=== PATIENT | female | born 1975 | race Caucasian/White ===

== ENCOUNTER 2022-07-29 10:03 | Outpatient (CLI) | payer OTHER, SELFPAY | END 2022-07-29 10:04 | disposition home or self-care (01) | PROVIDERS: Visit Provider Physician Assistant | DX: Z01.419 Encounter for gynecological examination (general) (routine) without abnormal findings (principal); E66.9 Obesity, unspecified; Z13.6 Encounter for screening for cardiovascular disorders; Z13.1 Encounter for screening for diabetes mellitus | CPT/HCPCS: 80061; 82947; 84443 ==

== ENCOUNTER 2022-10-07 14:42 | Outpatient (CLI) | payer OTHER, SELFPAY ==
--- NOTE | 2022-10-07 15:00 | CRLHL7_ITS ---
For Patients: As a result of the Century Cures Act, medical imaging exams and procedure reports are released immediately into your electronic medical record. You may view this report before your referring provider. If you have questions, please contact your health care provider. BILATERAL SCREENING MAMMOGRAM WITH COMPUTER-AIDED DETECTION AND TOMOSYNTHESIS TECHNIQUE: CC and MLO views were obtained. These mammographic images have been obtained using full-field digital technique. These mammographic images were interpreted with the benefit of computer-aided detection. Breast Tomosynthesis was used in this interpretation. COMPARISON FILM: 07/10/21, 03/22/14, 11/05/11. FINDINGS: There are scattered areas of fibroglandular density IMPRESSION: There is no radiographic evidence for malignancy. ASSESSMENT: BI-RADS Category 2: Benign RECOMMENDATION: Routine screening mammogram in 1 year. A lay language report of this examination will be provided to the patient. Tomas Riley M.D. Diagnostic/Nuclear Medicine Radiologist [email or web address] KAT/Dictated by: Tomas Riley MD @ 10/09/2022 10:14:00 AM (Electronically Signed)
== END 2022-10-07 14:43 | disposition home or self-care (01) ==
PROVIDERS: Visit Provider Physician Assistant
DX: Z12.31 Encounter for screening mammogram for malignant neoplasm of breast (principal)
CPT/HCPCS: 77063; 77067

== ENCOUNTER 2024-04-22 09:03 | Outpatient (CLI) | payer OTHER, SELFPAY ==
[2024-04-23 22:38] LABS: HPV Source Cervix; HPV, High Risk by TMA Not Detected
== END 2024-04-22 09:04 | disposition home or self-care (01) ==
PROVIDERS: Visit Provider Physician Assistant
DX: N89.8 Other specified noninflammatory disorders of vagina (principal); Z13.6 Encounter for screening for cardiovascular disorders; Z13.1 Encounter for screening for diabetes mellitus; Z12.4 Encounter for screening for malignant neoplasm of cervix
CPT/HCPCS: 80061; 82947; 84443; 87624; 87625; 88141; 88142

== ENCOUNTER 2025-01-20 10:24 | Emergency (ER) | payer OTHER, SELFPAY ==
[2025-01-20] VITALS (21 sets, daily range): BP systolic 104–145; BP diastolic 62–94; PULSE 82–130; RESP 18; TEMP 36.1; O2SAT 95–99; BMI 33.3
--- NOTE | 2025-01-20 11:03 | ED.ABDPAIN ---
HPI - Abdominal Pain General Time Seen by Provider: 11:03 Date Seen: 01/20/25 Chief Complaint: Abdominal Pain Stated Complaint: Lower abdominal pain Time Seen by Provider: 01/20/25 10:50 Source: patient and RN notes reviewed Mode of arrival: ambulatory Limitations: no limitations History of Present Illness HPI narrative: Hanna is a very pleasant 49-year-old woman with history of constipation on daily stool softener who comes to the emergency room for evaluation of inability to stool and abdominal pain. Patient notes that she had not skipped any of her normal [id number] stool softeners and yet found herself with decreasing inability does stool over the past 7 days. She notes that she has also tried suppositories and enemas. Because of this she now has blood in her stool. She has been able to produce small amounts of stool but feels that it is probably coming around a large blockage. She notes abdominal cramping that is severe causing nausea but she has not had any vomiting. She denies fever or chills. She has had a tubal ligation otherwise no other abdominal surgeries. This has never happened to her before. Nursing staff notes that she was tachycardic and thus did an EKG in triage. She has no chest pain at this time Related Data Previous Rx's ?Medication ?Instructions ?Recorded estradiol 0.01% (0.1 mg/gram) 1 appful vaginal QDAY #42.5 grams 04/22/24 vaginal cream (Estrace) estradiol 0.05 mg/24 hr semiweekly 1 patch topical 2XW #24 patches 04/22/24 transdermal patch progesterone micronized 100 mg 100 mg PO QDAY #90 caps 04/22/24 capsule Allergies Allergy/AdvReac Type Severity Reaction Status Date / Time penicillin V Allergy Intermediate Rash Verified 01/20/25 10:39 Review of Systems Status of ROS Reports: 10 or more systems reviewed and unremarkable except as noted in History and below Const Denies: fever or chills Eyes Denies: change in vision [facility] Medical History History of vaginal delivery History of abnormal cervical Pap smear (03/09/14) ?Z87.42 - Personal history of other diseases of the female genital tract (ICD-10) Surgical History History of tubal ligation (1994) ?Z98.51 - Tubal ligation status (ICD-10) History of laparoscopy (06/19/05) ?Z98.890 - Other specified postprocedural states (ICD-10) History of colposcopy with cervical biopsy (07/19/21) ?Z98.890 - Other specified postprocedural states (ICD-10) History of colposcopy ?Z98.890 - Other specified postprocedural states (ICD-10) Family History Brother Diabetes Mother Diabetes Social History (Updated 04/22/24 @ 08:49 by Tracey Ulrich ~ [facility], [facility]) What is your current living situation?: I presently have a place to live Problems where you live: no known problems In the past 12 months, utilities in danger of being shut off: no In past 12 months, lack of transportation kept you from medical appts, meetings, work, or getting things needed for daily living: no In the past 12 mos, have been you worried that your food would run out before you had money to buy more?: never true In the past 12 mos, the food you bought just didn't last and you didn't have money to buy more?: never true Smoking Status: Never smoker How often does anyone, including family, friends and others, physically hurt you: never How often does anyone, including family, friends and others, insult or talk down to you: never How often does anyone, including family, friends and others, threaten you with harm: never How often does anyone, including family, friends and others, scream or curse at you: never Exam Narrative: Exam Narrative: Patient is alert and oriented. Mentation and speech is normal. Lips are dry. Heart with a tachycardic rate normal rhythm. Lungs are clear. Rectal exam shows no evidence of blood on the external anus. No evidence of swollen hemorrhoids. Finger is inserted and no large stool collection is noted. I did have a small amount of liquid stool on my gloved finger tip and it clearly does have some blood associated. Moving all extremities without difficulty. Abdomen with increased bowel sounds. No significant distension. Const: Vital Signs, click to edit/add: Vital Signs - 24 hr 01/20/25 10:35 01/20/25 11:44 01/20/25 11:45 Temperature 97 F L Pulse Rate 112 H 112 H Pulse Rate [Pulse Oximeter] 130 H Respiratory Rate 18 Blood Pressure 121/92 H Blood Pressure [Ri ght Upper Arm] 127/82 Pulse Oximetry 98 99 98 Oxygen Delivery Me thod Room Air 01/20/25 11:46 01/20/25 11:47 01/20/25 12:00 Temperature Pulse Rate 121 H 121 H 113 H Pulse Rate [Pulse Oximeter] Respiratory Rate Blood Pressure 104/94 H Blood Pressure [Ri ght Upper Arm] Pulse Oximetry 95 98 98 Oxygen Delivery Me thod 01/20/25 12:01 01/20/25 12:15 01/20/25 12:16 Temperature Pulse Rate 122 H 108 H 105 H Pulse Rate [Pulse Oximeter] Respiratory Rate Blood Pressure 109/85 109/82 Blood Pressure [Ri ght Upper Arm] Pulse Oximetry 97 96 97 Oxygen Delivery Me thod 01/20/25 12:39 01/20/25 12:45 01/20/25 12:46 Temperature Pulse Rate 94 91 90 Pulse Rate [Pulse Oximeter] Respiratory Rate Blood Pressure 145/62 H Blood Pressure [Ri ght Upper Arm] Pulse Oximetry 98 99 98 Oxygen Delivery Me thod 01/20/25 13:00 01/20/25 13:01 01/20/25 13:02 Temperature Pulse Rate 90 90 87 Pulse Rate [Pulse Oximeter] Respiratory Rate Blood Pressure 132/86 Blood Pressure [Ri ght Upper Arm] Pulse Oximetry 98 98 98 Oxygen Delivery Me thod 01/20/25 14:49 01/20/25 14:50 01/20/25 14:53 Temperature Pulse Rate 99 102 H Pulse Rate [Pulse Oximeter] Respiratory Rate Blood Pressure 132/74 Blood Pressure [Ri ght Upper Arm] Pulse Oximetry 97 95 Oxygen Delivery Me thod 01/20/25 15:00 01/20/25 15:15 01/20/25 15:30 Temperature Pulse Rate 93 92 82 Pulse Rate [Pulse Oximeter] Respiratory Rate Blood Pressure Blood Pressure [Ri ght Upper Arm] Pulse Oximetry 98 96 98 Oxygen Delivery Me thod Documenting provider has reviewed patient's vital signs: yes Course Course ED Course: Differential diagnosis includes but is not limited to constipation, bowel obstruction, mass, colitis, diverticulitis. Patient will need pain medications. I would like to avoid narcotics as it can be Pro constipating. Will use Toradol 15 mg IV along with 1 L of saline. If pain continues will use Valium 5 mg IV. Will start with flat plate and upright and CBC. Reevaluation(s) Reevaluation #1: Patient noted to have significant improvement with Toradol although some cramping remains. Will use Valium 5 mg as we do have a flat plate and upright did do not show significant amount of stool throughout the abdomen. White count is concerning a greater than 24,000. Certainly this could be demargination based on the significant pain patient was in but at this level I do think we need to further investigate the etiology of the sudden inability to stool as patient is on both do call Axe and magnesium citrate daily. I spoke to the patient about proceeding with CT of the abdomen and pelvis as further laboratory work. She is in agreement. Reevaluation #2: Patient noted to have proctitis and moderate volume of stool in the rectum. I certainly this is not something that I was able to reach with my finger. I did have the pleasure of consulting with our surgeon Dr. Owens who was able to view the CT as well. At this time will check a lactate given the elevated white count as well as comprehensive panel and CRP. Surgeon did suggest enema-will use soap suds. Will pre treat with a small amount of lidocaine jelly just within the rectum. She is given a 2 L of fluid. Reevaluation #3: Patient notes that she was able to have a small stool. She is feeling much better. Lactate fortunately was 1.7 and normal. Additional Reevaluation(s): Note that patient had an elevated heart rate upon arrival. I do believe this was from pain. She had no chest pain at that time. EKG does not show any acute injury. Patient was given fluids and heart rate has return to 80s. Consultations Consultation #1: Dr. Owens-surgical technologist. Vital Signs Vital signs: Initial Vital Signs Temperature 97 F L 01/20/25 10:35 Temperature Source Temporal Artery Scan 01/20/25 10:35 Pulse Rate 130 H 01/20/25 10:35 Pulse Rhythm Regular 01/20/25 10:35 Respiratory Rate 18 01/20/25 10:35 Blood Pressure 127/82 12/04/25 10:35 Blood Pressure Mean 97 01/20/25 10:35 Blood Pressure Position Sitting 01/20/25 10:35 Pulse Oximetry 98 01/20/25 10:35 Oxygen Delivery Method Room Air 01/20/25 10:35 Vital Signs Temperature 97 F L 01/20/25 10:35 Pulse Rate 130 H 01/20/25 10:35 Respiratory Rate 18 01/20/25 10:35 Blood Pressure 127/82 01/20/25 10:35 Pulse Oximetry 98 01/20/25 10:35 Oxygen Delivery Method Room Air 01/20/25 10:35 Temperature 97 F L 01/20/25 10:35 Pulse Rate 82 01/20/25 15:30 Respiratory Rate 18 01/20/25 10:35 Blood Pressure 132/74 01/20/25 14:50 Pulse Oximetry 98 01/20/25 15:30 Oxygen Delivery Method Room Air 01/20/25 10:35 Medications Administered Medications: Discontinued Medications Generic Name Dose Route Start Last Admin Trade Name Freq PRN Reason Stop Dose Admin Diazepam 5 mg 01/20/25 11:51 01/20/25 11:59 Diazepam 5 Mg/Ml Inj IV 01/20/25 11:52 5 mg ONCE ONE Administration Sodium Chloride 1,000 mls @ 1,000 mls/hr 01/20/25 11:33 01/20/25 12:45 0.9 % Sodium Chloride 1000 Ml IV 01/20/25 12:32 Infused .Q1H GIL[facility] Infusion Ketorolac Tromethamine 15 mg 01/20/25 11:13 01/20/25 11:36 Ketorolac 15 Mg/Ml Inj IVP 01/20/25 11:14 15 mg ONCE ONE Administration Lidocaine HCl 6 ml 01/20/25 13:48 01/20/25 14:13 Lidocaine Hcl 2 % Jelly (Top) Sterile UR 3 ml ONCE PRN Administration Ondansetron HCl 4 mg 01/20/25 11:13 01/20/25 11:37 Ondansetron 2 Mg/Ml Inj IVP 01/20/25 11:14 4 mg ONCE ONE Administration MDM - Abdominal Pain MDM Narrative Medical decision making narrative: 1. Proctitis-patient has had increasing inability does stool over the last 7 days with home use of suppositories and enemas that have not been successful. Patient was given soapsuds enema here with small stool production. Given the repeated trauma to the rectum did not want to give any additional treatments. However, will use GoLYTELY to try and increase bowel transit and hopefully empty rectum. Patient has been using do Dulcolax and magnesium citrate daily. Will have her return to Dulcolax but not magnesium citrate after she is finished with GoLYTELY. Will have her instead do MiraLax 1/2 dose twice daily. 2. Leukocytosis-patient white count greater than 24,000. She is not experiencing a fever today and has no evidence of abscess on CT. However, I do wish her to recheck this with primary care early next week to ensure that this value has returned to normal. He was also noted that her glucose is mildly elevated and this should be recheck as well. 3. Abdominal pain-greatly improved with Toradol. We did give Valium pending the CT and this helped as well. No evidence of bowel obstruction free air noted on CT. 4. Tachycardia-initial heart rate upon arrival was 120s. Patient had no chest pain but EKG was done by nursing staff. Heart rate returned to normal after fluid bolus as well as pain control. 5. Disposition-patient initially instructed to follow up with surgery. However a 2nd conversation with the surgeon after patient departure occurred. Surgeon would like patient to establish with primary care. Would like primary care to recheck the white count as well as insure patient is improving. Finally patient does need a colonoscopy in the future and would ask that the primary care provider order that test. Jen has a phone number that she should be able to make this appointment. I did ask her to call me back if the appointment cannot be made for early next week January 24 or . Note patient is prone to UTI and I had ordered a urinalysis but she was unable to urinate here. She has no urinary symptoms at this time. Medical Records Attestation: I reviewed the patient's medical records. Lab Data Attestation: I reviewed the patient's lab results. Labs: Lab Results 01/20/25 01/20/25 01/20/25 Range/Units 11:25 12:04 14:45 WBC 24.94 H (4.50-11.00) K/uL RBC 4.72 (4.00-5.20) m/uL Hgb 14.8 (12.0-16.0) gm/dL Hct 43.6 (33.0-51.0) % MCV 92 (80-100) fL MCH 31 (26-34) pg MCHC 34 (32-36) gm/dL RDW Coeff of Livia 11.9 (11.5-15.5) % Plt Count 405 (140-440) K/uL Neut % (Auto) 91.2 H (42.0-72.0) % Lymph % (Auto) 4.2 L (20-44) % [place] % (Auto) 4.3 (0.0-11.0) % Eos % (Auto) 0.0 (0.0-7.0) % Baso % (Auto) 0.2 (0.0-3.0) % Neut # (Auto) 22.70 H (1.7-7.0) K/uL Lymph # (Auto) 1.00 (0.90-2.90) K/uL [place] # (Auto) 1.10 H (0.00-0.90) K/UL Eos # (Auto) 0.00 (0.00-0.50) K/uL Baso # (Auto) 0.00 (0.00-0.30) K/uL Abs Immat Gran (auto) 0.00 (0.00-0.30) K/uL Imm/Tot Granulo (auto) 0.1 % Diff Slide Review Acceptable Review (Acceptable) Sodium 138 (135-149) mmol/L Potassium 4.1 (3.6-5.1) mmol/L Chloride 100 (96-114) mmol/L Carbon Dioxide 26 (20-32) mmol/L Anion Gap 12 (7-15) mEq/L BUN 12 (7-30) mg/dL Creatinine 0.8 (0.5-1.5) mg/dL Estimated Creat Clear 78.76 Estimated GFR 90 ml/min Glucose 176 H (60-115) mg/dL Lactate 1.7 (0.5-1.9) mmol/L Calcium 9.2 (8.4-10.6) mg/dL Total Bilirubin 0.9 (0.1-1.5) mg/dL AST 29 (12-35) U/L ALT 18 (4-35) U/L Alkaline Phosphatase 77 (40-150) U/L Total Protein 8.2 (6.0-8.3) g/dL Albumin 4.6 (3.3-5.0) g/dL Lab Acknowledgement Test Added Imaging Data Abdominal x-ray: Attestation: I have reviewed the pertinent imaging results. My impression: I do not see a huge stool burden in the abdomen. I do not note signs of bowel obstruction. Radiologist's impression: Bowel: Nonobstructive bowel gas pattern. The amount of colonic stool is within normal limits. Other: No sign of free air. Osseous structures are unremarkable for age. Impression: Nonobstructive bowel gas pattern. ECG Data Attestation: I personally reviewed and interpreted this ECG as follows: ECG interpretation date: 01/20/25 Interpretation: EKG by my read shows sinus tachycardia at 0123. I do not see any acute ST or T-wave changes. WI and QT intervals within normal limits. campus monitor notes no arrhythmias. Heart rate gradually returns to 80 post fluid and pain control measures. Discharge Plan Discharge Clinical Impression: Acute proctitis, Constipation, Leukocytosis Patient Disposition: Home, Self-Care Condition: Improved Additional Instructions: Suggestion: GoLYTELY should help transit time of stool 3 your body. After using this you may return to yourDucolax. Replace magnesium citrate with MiraLax. You will need to follow-up for the following reasons: 1. Recheck of your white count to ensure that has returned to normal. 2. Follow-up with surgery regarding the proctitis and eventual need for colonoscopy. Our surgeons are in the [facility]. Appointments can be made by calling [phone]. Please return to the emergency room for onset of fever, worsening abdominal pain, blood in stool and as needed Prescriptions: No Action estradiol [Estrace] 0.01 % (0.1 mg/gram) cream 1 appful vaginal QDAY Qty: 42.5 1RF Rx Instructions: Nightly x2 weeks, then twice weekly estradiol 0.05 mg/24 hr patch semiweekly 1 patch topical 2XW Qty: 24 3RF progesterone micronized 100 mg capsule 100 mg PO QDAY Qty: 90 3RF Follow Up/Referrals: Provider,Not a Local [Non-Staff, Family Practice] Stand Alone Forms: [employer] Info Instructions
--- NOTE | 2025-01-20 11:13 | CRLHL7_ITS ---
For Patients: As a result of the Century Cures Act, medical imaging exams and procedure reports are released immediately into your electronic medical record. You may view this report before your referring provider. If you have questions, please contact your health care provider. Indication: Abdomen pain. Technique: Abdomen 2 view. Comparison: None. Findings: Bowel: Nonobstructive bowel gas pattern. The amount of colonic stool is within normal limits. Other: No sign of free air. Osseous structures are unremarkable for age. Impression: Nonobstructive bowel gas pattern. Dictated by Janette Aguirre MD @ 01/20/2025 11:43:29 AM (Electronically Signed)
--- OUTSIDE RECORDS SUMMARY | 2025-01-20 11:33 | XMS_ITS | Clinical Summary ---
Author Organization [facility] Address [address] [place] [address] Care Team Providers Care Md Senior Research Scientist Name Role Phone Reshma Bazan DO Primary Care Provider Allergies Active Allergy Reactions Criticality Noted Date Comments Penicillins Medications albuterol HFA 90 mcg/actuation inhalerIndicatio ns:Wheeze Inhale 1-2 Puffs by mouth every 4 hours if needed. 1 Inhaler 1 10/08/2019 Active montelukast (SINGULAIR) 10 mg tabletIndication s:Allergy, sequela Take 1 tablet by mouth at bedtime. 30 tablet 12 10/08/2019 Active azelastine 137 mcg/actuation (ASTELIN) nasal sprayIndications :Allergy, sequela Inhale 1 Spurger in the nostril(s) 2 times daily. 1 Bottle 11 11/01/2019 Active Active Problems Problem Noted Date Diagnosed Date Cold feet 11/04/2008 Immunizations Immunization Administration Dates Next Due Tdap 11/04/2008 Family History Medical History Relation Name Comments Diabetes Mother Cancer Other lung/adrenal un known which grand parent Relation Name Status Comments Mother Other Social History Tobacco Use Types Packs/Day Years Used Date Smoking Tobacco: Never Smokeless Tobacco: Never Tobacco Cessation:Counseling Given: Yes Alcohol Use Standard Drinks/Week Comments Yes 1.7 (1 standard drink = 0.6 oz p ure alcohol) rarely PHQ-2 Answer Date Recorded PHQ-2 TOTAL SCORE 0 10/08/2019 Social Connections Answer Date Recorded Frequency of Communication with Friends and Fami ly Not on file 02/17/2021 Financial Resource Strain Answer Date R ecorded Difficulty of Paying Living Expenses Not on file 02/17/2021 Difficulty of Paying Living Expenses Not on file 02/17/2021 Comments No Sex and Gender Information Value Date Recorded Sex Assigned at Not on file 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[employer] Gender Identity Not on file Sexual Orientation Not on file Obstetrics History Para Term AB IAB SAB Ectopic Multiple Livin g Live Births 2 2 2 Date Outcome GA Total Labor Labor/2nd/3rd Weight Sex Type Anes PTL Hillary A1 A5 Name Clin Term Term Last Filed Vital Signs Vital Sign Reading Time Taken Comments Blood Pressure 137/85 11/01/2019 7:54 AM CDT tow er Pulse 80 11/01/2019 7:54 AM CDT Temperature 36.8 C (98.3 F) 10/08/2019 9:47 AM CDT Respiratory Rate - - Oxygen Saturation 98% 11/01/2019 7:54 AM CDT Inhaled Oxygen Concentration - - Weight 64.5 kg (142 lb 3.2 oz) 11/01/2011 8:31 A M CDT Height 170.2 cm (5' 7) 11/01/2011 8:31 AM CDT Body Mass Index 22.27 11/01/2011 8:31 AM CDT Plan of Treatment Health Maintenance Due Date Last Done Comments BMI (ht and wt on same day) for age 18+ 02/02/1992 Hepatitis B series for 19+ ( 1 of 3 - 19+ 3-dose series) 1993 Tetanus booster 11/04/2018 11/04/2008 Colonoscopy through age 75 2019 Lipids for age 45-75 2019 11/01/2011, 11/05/19 09 Mammogram for age 45-75 2019 11/05/2011 Depression screening for age 12+ 10/07/2020 10/08/19 20 Pneumococcal series for age 50+ (1 of 1 - PCV) 02/02/2024 Zoster (shingles) series for age 50+ (1 of 2) 02/02/2024 COVID-19 vaccine series (1 - 2024- season) 2024 Influenza Vaccine (#1) 2024 Pap test for age 21-65 07/29/2025 3, 07/29/2022, 03/02/2021, Additional history exists RSV vaccine for adults or (1 - 1-dose 75+ series) 2049 HIV for age 15-65 Completed 11/01/2011 Hepatitis C screening for ag e 18-79 Completed 11/01/2011 Procedures Procedure Name Priority Date/Time Associated Diagnosis Comments CARDIOVASCULAR INVASIVE SPECIALIST THIN PREP PAP SCREEN IMAGED Routine 07/29/2022 10:00 AM CDT XR MAMMO BILAT DIAG FFDM ([place]) Routine 11/05/2011 2:24 PM CDT Lump or mass in breast ANTI HIV 1/2 Routine 11/01/2011 10:04 AM CDT Screen for STD (sexually transmitted disease) ANTI HCV Routine 11/01/2011 10:04 AM CDT Screen for STD (sexually transmitted disease) LIPID PANEL W REFLEX MEASURED LDL Routine 11/01/2011 10:03 AM CDT Screening cholesterol level from Last 3 Months or Most Recently Relevant to Health Maintenance Results * (ABNORMAL) CARDIOVASCULAR INVASIVE SPECIALIST THIN PREP PAP SCREEN IMAGED (07/29/2022 10:00 AM CDT) Case Report Gynecologic Cytology Report Case: [id number] Authorizing Provider: Dorie Loyd PA-C Collected: 07/29/2022 1000 Ordering Location: [facility] Received: 07/31/2022 1038 First Screen: Baccam, Minie Pathologist: Kia Pollard MD Specimen: CARDIOVASCULAR INVASIVE SPECIALIST ThinPrep Vial Screening, Cervical 09/02/2022 5:00 PM CDT [facility] INTERPRETATION/ RESULT LOW GRADE SQUAMOUS INTRAEPITHELIAL LESION (LSIL)(A) (none) 09/02/2022 5:00 PM CDT [facility] at 1700 CDT SPECIMEN ADEQUACY Satisfactory for evaluation Endocervical component present 09/02/2022 5:00 PM CDT [facility] HPV REQUEST HPV and PAP 09/02/2022 5:00 PM CDT [facility] Last Pap Date 03/02/2021 09/02/2022 5:00 PM CDT [facility] Last Pap Result LSIL 5:00 PM CDT [facility] [place] Bx Done Today No 09/02/2022 5:00 PM CDT [facility] Additional Information 09/02/2022 5:00 PM CDT [facility] Comment: Interpreted at [facility] - [address], [place] [address] Automated Review Successful 09/02/2022 5:00 PM CDT [facility] Comment:Specimen processed s uccessfully by automated continuous still operator device, Optinel SystemsPrep Imaging System, [employer] ANCILLARY TESTING CARDIOVASCULAR INVASIVE SPECIALIST HPV Ordered, Please see separate report 09/02/2022 5:00 PM CDT [facility] Note The pap test is a screening technique, not a diagnostic procedure. It is used primarily to screen for squamous cancers and precursor lesions. Published studies have shown that it is subject to both false negative and false positive results. The pap test should not be used as the sole means to diagnose or exclude pre-malignant and malignant lesions. 09/02/2022 5:00 PM CDT [facility] Other (Cervical) 07/29/2022 10:00 AM CDT 07/31/2022 10:38 AM CDT may Rach BARRIOS PATHOLOGY/CYTOLOGY Final R esult [facility] [address] [place] [address], [place] * XR MAMMO BILAT DIAG FFDM (11/05/2011 2:24 PM CDT) Anatomical Region Laterality Modality BREASTS, Breast Left, Breast Right Bilateral Mammography Impressions 11/06/2011 7:44 AM CDT ACR 0 Incomplete: Additional imaging evaluation needed RECOMMENDATION: Ultrasound of the RIGHT breast in the area of palpable abnormality. Narrative 11/06/2011 7:44 AM CDT BILATERAL FULL-FIELD DIGITAL SCREENING MAMMOGRAM WITH CAD CLINICAL HISTORY: 36-year-old female with palpable lump RIGHT breast. Comparison: The patient has had no prior mammograms. These mammographic images have been obtained using full-field digital technique. These mammographic images were interpreted with the benefit of computer-aided detection. FINDINGS: CC and MLO views of both breasts were performed with a metallic BB placed in the area of clinical interest in the upper outer quadrant of the RIGHT breast posteriorly. The breasts are heterogeneously dense. No dominant mass or suspicious calcifications or architectural distortion are seen in either breast. Procedure Note Jonn Owen A, DO - 11/06/2011 BILATERAL FULL-FIELD DIGITAL SCREENING MAMMOGRAM WITH CAD CLINICAL HISTORY: 36-year-old female with palpable lump RIGHT breast. Comparison: The patient has had no prior mammograms. These mammographic images have been obtained using full-field digitaltechnique. These mammographic images were interpreted with the benefit ofcomputer-aided detection. FINDINGS: CC and MLO views of both breasts were performed with a metallicBB placed in the area of clinical interest in the upper outer quadrant ofthe RIGHT breast posteriorly. The breasts are heterogeneously dense. Nodominant mass or suspicious calcifications or architectural distortion areseen in either breast. IMPRESSION: ACR 0 Incomplete: Additional imaging evaluation needed RECOMMENDATION: Ultrasound of the RIGHT breast in the area of palpableabnormality. us Lety AZAR MAMMO Final R esult * ANTI HCV (11/01/2011 10:04 AM CDT) ANTI HCV Non-reacti ve [facility] Blood specimen (specimen) BLOOD SPECIMEN / Unknown 11/01/2011 10:04 AM CDT 11/01/2011 9:57 AM CDT us Lety AZAR SEND OUTS Final R esult [facility] [place] ZIP [address] [place] [address] * ANTI HIV 1/2 (11/01/2011 10:04 AM CDT) ANTI HIV 1/2 Non-reacti ve [facility] Blood specimen (specimen) BLOOD SPECIMEN / Unknown 11/01/2011 10:04 AM CDT 11/01/2011 9:57 AM CDT Lety AZAR SEND OUTS Final R esult [facility] INTERNAL ZIP [address] [place] [address] * LIPID PANEL W REFLEX MEASURED LDL (11/01/2011 10:03 AM CDT) Pathologist [facility] CHOLESTEROL,TOTAL 177 100 - 199 mg/dL 11/01/2011 11:06 AM T [facility] TRIGLYCERIDES 77 <150 mg/dL 11/01/2011 11:06 AM [facility] HDL CHOLESTEROL 68 >40 mg/dL 2 11:06 AM [facility] CHOL/HDL RATIO 2.60 <4.50 11/01/2011 11:06 AM [facility] LDL CHOLESTEROL 94 <=130 mg/dL 11/01/2011 11:06 AM T [facility] PATIENT STATUS FASTING 11/01/2011 11:06 AM T [facility] Blood specimen (specimen) BLOOD SPECIMEN / Unknown 11/01/2011 10:03 AM CDT 11/01/2011 10:03 AM CDT Lety AZAR CHEMISTRY Final R esult [facility] [address] [place] [address] from Last 3 Months or Most Recently Relevant to Health Maintenance Insurance [employer] Care Teams Md Senior Research Scientist Relationship Specialty Start Date End Date Reshma Bazan DO [address] [place] [address] PCP - General 10/19/08
--- OUTSIDE RECORDS SUMMARY | 2025-01-20 11:33 | XMS_ITS | Patient Health Record ---
Author Organization [facility] Address [address] [place] [address] Care Team Providers Care Senior It Assistant Name Role Phone None, None Primary Care Provider NOE Salas Unavailable [phone] Aydee Mcnally Unavailable [phone] Allergies Allergen (clinical drug ingredient) Drug/Non Drug Allergy documented on EMR Reaction Allergy Type Onset Date Status Penicillin Unknown Drug Allergy Active Results Component Value Reference Range Notes CT Scan : Temporal Bones WO Reviewed date:03/23/2024 04:33:32 PM Interpretation: Performing Lab: Notes/Report: Original Report [facility] Location: [place]:[facility] EXAM:A COMPUTED TOMOGRAPHY TEMPORAL BONES WITHOUT CONTRAST A CLINICAL INFORMATION:A Left ear pain. A TECHNICAL INFORMATION:A Computed tomography axial images were obtained through the temporal bones with 0.62 mm slice thickness.A Reformatted views including coronal, Stenvers, and Poschl were obtained. A INTERPRETATION:A The digital gem cutter radiographs demonstrate no lesions of the skull. Limited scans through the brain and orbits are unremarkable. The nasal septum is nearly midline. Minimal mucosal thickening in the left maxillary sinus. Right temporal bone: The external auditory canal is patent without soft tissue masses. Tympanic membrane is unremarkable. Scutum is sharp. The middle ear cavity is clear. The ossicles appear morphologically normal without erosion. The tegmen tympani is intact. The vestibula, cochlea, and semicircular canals are unremarkable. The mastoid air cells are clear. A Left temporal bone: The external auditory canal is patent without soft tissue masses. Tympanic membrane is unremarkable. The scutum is sharp. The middle ear cavity is clear. The ossicles appear morphologically normal without erosion. The tegmen tympani is intact. The vestibula, cochlea, and semicircular canals are unremarkable. The mastoid air cells are clear. A CONCLUSION:A 1. Unremarkable computed tomography of the temporal bones. 2. Minimal mucosal thickening in the left maxillary sinus. A [facility] is committed to minimizing radiation exposure while maintaining high-quality CT images. Technologists adjust the mA and/or kV according to each patient's size to optimize dose. Since we began voluntarily reporting to the [place] [employer] [place] [employer]'s Dose Index Registry, our average CT doses have been consistently lower than the national average. LPB Read by: Mayur Valenzuela M.D. Reviewed and Electronically Signed by: Mayur Valenzuela M.D. Reason For Referral No Information Medications Medication SIG (Take, Route, Frequency, Duration) Notes Start Date End Date Status Estradiol 0.05 MG/24HR Patch Twice Weekly APPLY 1 PATCH TOPICALLY TO THE SKIN 2 TIMES A WEEK Transdermal; Duration: 84 Days Active Progesterone 100 MG Capsule Oral; Duration: 30 Days Active Social History Tobacco Use: Social History Observation Description Date Details (start date - stop date) Never Smoker NA - NA Social History Tobacco Use: Social Info Question Answer Notes Tobacco Control (Standard) Tobacco use: Nonsmoker Problems Problem Type SNOMED Code ICD Code Onset Dates Problem Status W/U Status Risk Notes Problem Otalgia of left ear (0453395161) Otalgia of left ear (H92.02) Active confirmed Problem Abnormal auditory perception (45819464) Abnormal auditory perception of left ear (H93.292) Active confirmed Problem Disorder of left middle ear (45763795535733 09) Disorder of left middle ear (H74.92) Active confirmed Procedures Procedure Date Ordered Date Performed Result Body Sit e OTOMICROSCOPIC EAR EXAM 03/09/2024 03/09/2024 N/A Encounters Encounter Location Date Provider Diagnosis [facility] [place] [id number] [facility] [address] [place] [address] 03/09/2024 NOE MCKEON Disorder of left middle ear H74.92 ; Abnormal auditory perception of left ear H93.292 and Otalgia of left ear H92.02 [facility] [place] [address] [place] [address] 03/09/2024 Aydee Mcnally Abnormal auditory perception of left ear H93.292 [facility] [place] [address] [place] [address] 03/23/2024 NOE MCKEON Assessments Encounter Date Diagnosis (ICD Code) Assessment Notes Treatment Notes Treatment Clinical Notes Section Notes 03/09/2024 Abnormal auditory perception of left ear (ICD-10 - H93.292) Findings, assessment and management options were reviewed. Hearing assessment was ordered and independently reviewed with the patient today, and found to be within normal limits. Hearing protection in noisy environments and annual audiogram for surveillance suggested. 03/09/2024 Disorder of left middle ear (ICD-10 - H74.92) Findings, assessment and management options were reviewed. Microscopic ear exam reveals possible paredes colored middle ear mass/pathology in left posterior/superio r quadrant, with apparent distension of TM in that location. Tympanogram was type A, AU. Differential diagnosis/etiolog y reviewed. Dx/etiology uncertain. No evidence for infectious or neoplastic etiology on today's exam. CT scan of temporal bones suggested to further evaluate her unilateral sxs and unilateral exam findings. Followup for independent review of findings once they are available 03/09/2024 Abnormal auditory perception of left ear (ICD-10 - H93.292) 03/09/2024 Otalgia of left ear (ICD-10 - H92.02) Findings, assessment and management options were reviewed. Differential diagnosis/etiolog y reviewed. Dx/etiology uncertain. No evidence for infectious or neoplastic etiology on today's exam. CT scan of temporal bones suggested to further evaluate for underlying pathology. We discussed the possibility of TMJ disorder as possible cause of otalgia if CT scan is negative. Treatment strategies outlined. Plan Of Treatment No Information Insurance Providers Payer Name Payer Address Payer Phone Subscriber Number Group Number Insured Name Patient Relationship to Insured Coverage Start Date Coverage End Date [facility] [address] [address] [place], [place] [id number] [phone] [id number] Jen Rollins Self - patient is the insured Medical (General) History Surgical History Surgery Date(Month/Year) tonsillectomy tubal ligation
[2025-01-20 11:34] LABS: Hematocrit* 43.6 % (33.0-51.0); Hemoglobin* 14.8 gm/dL (12.0-16.0); Immature Granulocytes Pct Auto 0.1 %; Mean Corpuscular HGB Conc 34 gm/dL (32-36); Mean Corpuscular Hemoglobin 31 pg (26-34); Mean Corpuscular Volume 92 fL (80-100); RDW Coefficient of Variation % 11.9 % (11.5-15.5); Red Blood Count* 4.72 m/uL (4.00-5.20); White Blood Count* 24.94 K/uL (4.50-11.00)
[2025-01-20 11:36] LABS: Immature Granulocytes Abs Auto 0.00 K/uL (0.00-0.30); Lymphocytes Absolute Auto 1.00 K/uL (0.90-2.90); Slide Review Reflex Yes
[2025-01-20] MEDS: ONDANSETRON 2 MG/ML inj 4 MG IVP (11:37)
--- NOTE | 2025-01-20 11:54 | CRLHL7_ITS ---
For Patients: As a result of the Century Cures Act, medical imaging exams and procedure reports are released immediately into your electronic medical record. You may view this report before your referring provider. If you have questions, please contact your health care provider. INDICATION: INABILITY TO HAVE BM, ELEVATED WBC, ABD PAIN. NAUSEA TECHNIQUE: CT abdomen and pelvis acquired with 101 cc Isovue 370 IV contrast. COMPARISON: Radiographs same day. FINDINGS: Lower chest: The visualized lower lungs are aerated. No pleural or pericardial effusion. ABDOMEN: Liver: Normal enhancement. No focal suspicious hepatic lesions. Gallbladder and biliary: Normal gallbladder without radiopaque stone. Normal caliber bile ducts. Spleen: Normal size and enhancement. Pancreas: Normal enhancement without peripancreatic inflammatory changes or ductal dilatation. Adrenal glands: Normal adrenal glands. Kidneys and ureters: Normal enhancement. No radio-opaque calculi. No hydroureteronephrosis. Subcentimeter hypodensities are too small to characterize however statistically represent cysts. GI tract: The stomach is relatively decompressed. Normal caliber small and large bowel loops. Normal appendix. Moderate volume colonic stool in the rectal vault. Associated mild inflammatory stranding in mesorectal fat extending inferiorly towards the anal sphincter complex. Vascular structures: Normal caliber abdominal aorta. Lymph nodes: No lymphadenopathy in the abdomen or pelvis by size criteria. Peritoneum: No free air, free fluid, or focal drainable fluid collection. PELVIS: Genitourinary system: Normal urinary bladder. Two hypoattenuating foci within the uterine fundus, potentially reflecting small fibroids. SKELETAL STRUCTURES AND SOFT TISSUES: No suspicious lytic or blastic lesions. IMPRESSION: Moderate volume colonic stool in the rectal vault. Associated mild inflammatory stranding in mesorectal fat extending inferiorly towards the anal sphincter complex. Constellation of findings are concerning for underlying proctitis. No focal drainable fluid collection. Please note that all CT scans at this facility use dose modulation, iterative reconstruction, and/or weight-based dosing when appropriate to reduce radiation dose to as low as reasonably achievable. Dictated by Gabriel Angulo MD @ 01/20/2025 12:55:43 PM (Electronically Signed)
[2025-01-20 11:55] LABS: Slide Review Acceptable Review (Acceptable)
[2025-01-20] MEDS: diazePAM 5 MG/ML inj IV (11:59)
[2025-01-20 12:32] LABS: Albumin* 4.6 g/dL (3.3-5.0); Chloride* 100 mmol/L (96-114); Potassium* 4.1 mmol/L (3.6-5.1); Sodium* 138 mmol/L (135-149)
[2025-01-20 12:35] LABS: Alanine Aminotransferase* 18 U/L (4-35); Alkaline Phosphatase* 77 U/L (40-150); Anion Gap 12 mEq/L (7-15); Aspartate Amino Transferase* 29 U/L (12-35); Bilirubin Total* 0.9 mg/dL (0.1-1.5); Blood Urea Nitrogen* 12 mg/dL (7-30); Calcium* 9.2 mg/dL (8.4-10.6); Carbon Dioxide* 26 mmol/L (20-32); Creatinine* 0.8 mg/dL (0.5-1.5); Est. Creatinine Clearance* 78.76; Estimated Glomerular Filt Rate 90 ml/min; Glucose* 176 mg/dL (60-115); Total Protein* 8.2 g/dL (6.0-8.3)
[2025-01-20] MEDS: lidocaine HCL 2 % JELLY (TOP) STERILE 6 ML UR (14:13)
[2025-01-20 14:52] LABS: Lactate Sepsis w/Reflex* 1.7 mmol/L (0.5-1.9)
== END 2025-01-20 15:56 | disposition home or self-care (01) ==
PROVIDERS: Emergency Provider Family Medicine; PCP Physician Assistant
DX: K62.89 Other specified diseases of anus and rectum (principal); K59.00 Constipation, unspecified; D72.829 Elevated white blood cell count, unspecified; R00.0 Tachycardia, unspecified; Z88.0 Allergy status to penicillin; Z98.51 Tubal ligation status
CPT/HCPCS: 36415; 74019; 74177; 80053; 81001; 83605; 85025; 93005; 96361; 96374; 96375; 99284; 99285; J1885; J2405; J3360; J7030; Q9967